=== PATIENT | male | born 1995 | race Hispanic/Latino ===

== ENCOUNTER 2017-08-17 13:48 | Emergency (ER) | payer OTHER | END 2017-08-17 18:49 | disposition home or self-care (01) | LOC: M ED 13:48 | DX: S63.501A Unspecified sprain of right wrist, initial encounter (principal); S29.011A Strain of muscle and tendon of front wall of thorax, initial encounter; S80.11XA Contusion of right lower leg, initial encounter; V49.49XA Driver injured in collision with other motor vehicles in traffic accident, initial encounter; Y92.410 Unspecified street and highway as the place of occurrence of the external cause | CPT/HCPCS: 71046 ==